=== PATIENT | male | born 1960 | race Caucasian/White ===

== ENCOUNTER 2016-05-27 06:17 | Day surgery (SDC) | payer OTHER ==
--- NOTE | 2016-05-22 16:48 | PREOPHP ---
DATE OF ADMISSION: 05/27/2016 HISTORY OF PRESENT ILLNESS: This 55-year-old patient is admitted for elective pterygium surgery of the left eye. Patient has had previous pterygium surgery on the opposite eye 5 years ago; however, the patient has had recurrence in both eyes. The patient's systemic history is positive for hyperte nsion, hypercholesterolemia. CURRENT MEDICATIONS INCLUDE: 1. Lisinopril. 2. Simvastatin. ALLERGIES: PATIENT IS ALLERGIC TO PENICILLIN. PHYSICAL EXAMINATION: Visual acuity is 20/50 in each eye. There is noted to be a vascularized nasa l pterygium extending to the pupil axis in both eyes with the left eye appearing to be more involved than the right eye. Applanation tonometry is 14 mmHg. Examination of the retina is within normal limits. DIAGNOSIS: Visually significant pterygium, both eyes. PLAN: Pterygium excision, left eye with mitomycin C application and conjunctival grafting. The pat ient understood the risks and alternatives to the surgery. These have been discussed with the patie nt and the patient understands and desires to proceed with surgery. Dictated By: VASYL VILLAFANA/OLIVIA Conf#: [id number] DID#: [id number]
[2016-05-26 16:42] VITALS: BMI 31.6
[~2016-05-27] VITALS: Ht 165.1 cm; Wt 84.1 kg
[2016-05-27] VITALS (8 sets, daily range): BP systolic 139–164; BP diastolic 91–104; PULSE 76–83; RESP 16–18; Ht 165.1 cm; Wt 84.1 kg
[2016-05-27] MEDS ORDERED: BALANCED SALT SOLN 15 ML OPH IRRIG ONE ×2 (07:00→08:12)
[2016-05-27] MEDS ORDERED: BENA10TA48 PO (07:37)
[2016-05-27] MEDS ORDERED: MAXZ25 PO (07:40)
[2016-05-27] MEDS ORDERED: SIMV10TA76 PO (07:41)
[2016-05-27] MEDS ORDERED: LIDOCAINE 2%/EPI 30 ML INJ ONE ×2 (08:11→08:16)
[2016-05-27] MEDS ORDERED: LIDOCAINE 2%/EPI (MDV) 20ML INJ INJ ONE (08:15)
--- NOTE | 2016-05-27 08:15 | HPN ---
Date/Time of Note Date/Time of Note DATE: 05/27/16 TIME: 08:14 Interval H&P Admission Note Pt. seen H&P reviewed: No system changes VASYL ALFARO MD May 27, 2016 08:15
[2016-05-27] MEDS ORDERED: FENTAnyl 50 MCG/ML VIAL ONE (08:28)
[2016-05-27] MEDS ORDERED: MITOMYCIN 5 MG INJ LEFT EYE SCH (08:45)
[2016-05-27] MEDS ORDERED: PROPOFOL 20 ML ONE (08:50)
[2016-05-27] MEDS ORDERED: LIDOCAINE 2% (SDV) 5 ML INJ ONE (08:50)
[2016-05-27] MEDS ORDERED: METOCLOPRAMIDE 10 MG INJ IV PRN (09:00)
[2016-05-27] MEDS ORDERED: ONDANSETRON 4 MG INJ IV PRN (09:00)
[2016-05-27] MEDS ORDERED: MEPERIDINE 25 MG INJ IV PRN (09:00)
[2016-05-27] MEDS ORDERED: DIPHENHYDRAMINE 50 MG INJ IV PRN (09:00)
[2016-05-27] MEDS ORDERED: FENTAnyl 50 MCG/ML VIAL IV PRN ×3 (09:00)
--- NOTE | 2016-05-27 11:18 | OPR ---
DATE OF OPERATION: 05/27/2016 PREOPERATIVE DIAGNOSIS: Pterygium, left eye. POSTOPERATIVE DIAGNOSIS: Pterygium, left eye. OPERATION PERFORMED: Pterygium excision with mitomycin C application and rotating conjunctival gio t, left eye. SURGEON: Vasyl Birmingham MD ANESTHESIA: Dr. Alonso. DESCRIPTION OF OPERATION: The patient brought to the operating room and positioned appropriately on an eye gurney. The patient was then prepped and draped in the usual sterile manner. The patient t hen received intravenous sedation and then some local anesthesia using lidocaine 2% with epinephrine was injected beneath the conjunctival bed of the pterygium in the nasal quadrant of the left eye. Ron scissors were then used to incise the conjunctiva at the tail of the pterygium and to dissec t it forward to the corneoscleral limbus. Using a curved Bristol blade, then the pterygium was disse cted free from the underlying cornea and removed and submitted as a specimen. Following this, caute ry was applied to the scleral bed to obtain hemostasis. When that had been completed mitomycin C 0. 3% was placed in a cup and a little Weck-Jen sponge wedges were impregnated with the mitomycin C. O ne of the pieces placed on the bare sclera at the corneoscleral limbus and left in place for 1 minut e. Following this, copious irrigation with balanced salt solution was performed for an additional m inute. After this was done, some additional intravenous sedation was administered subconjunctivally in the superior quadrant in order to create anesthesia for preparation of the conjunctival flap. U sing Denise scissors, the conjunctiva was disinserted from the corneoscleral limbus superiorly to th e 12 o'clock position, and then the scissors was used to incise the conjunctiva superiorly for appro ximately 5 mm and then to create a tongue like a conjunctival flap by bringing the incision back tow ards the nasal quadrant. When sufficiently large flap was created, it was rotated into place to cov er the gap in the conjunctiva where the body of the pterygium had been excised. This flap was sutur ed into place with surrounding conjunctiva and epinucleus using four 8-0 Prolene sutures placed in i nterrupted fashion. After they had been tied, the ends were cut short. When it was noted that hemo stasis was present and that the bare sclera had been covered with the conjunctival flap the speculum was removed. TobraDex ointment was placed on the surface of the eye and the eye was pressure patch ed. The patient then left the operating room in satisfactory condition. Dictated By: VASYL VILLAFANA/OLIVIA Conf#: [id number] DID#: [id number]
== END 2016-05-27 10:10 | disposition home or self-care (01) ==
LOC: SDS 06:17
PROVIDERS: ATTEND Ophthalmology
DX: H11.002 Unspecified pterygium of left eye (principal); I10 Essential (primary) hypertension; E11.9 Type 2 diabetes mellitus without complications; E78.5 Hyperlipidemia, unspecified
CPT/HCPCS: 65426; J3010; J9280; Z7512; Z7610